=== PATIENT | female | born 2000 | race Caucasian/White ===

== ENCOUNTER 2021-11-10 12:26 | Emergency (ER) | payer OTHER ==
[2021-11-10] MEDS ORDERED: Lidocaine 1% PF 2 ML SDV INJECT ONE (12:52)
[2021-11-10] MEDS ORDERED: Diphtheria,Pertussis(Acell),Tetanus Vaccine 0.5 ML Syringe IM ONE (12:52)
[2021-11-10] MEDS ORDERED: Bacitracin Oint 1 GM U/D Packet TOP ONE (12:52)
== END 2021-11-10 13:14 | disposition home or self-care (01) ==
LOC: MW.ED 12:26
DX: S61.012A Laceration without foreign body of left thumb without damage to nail, initial encounter (principal); Z23 Encounter for immunization; W26.8XXA Contact with other sharp object(s), not elsewhere classified, initial encounter
CPT/HCPCS: 12001; 90471; 90715; 99282-25

== ENCOUNTER 2025-02-14 10:05 | Emergency (ER) | payer SELFPAY | END 2025-02-14 10:30 | disposition home or self-care (01) | LOC: MW.ED 10:05 | DX: Z76.0 Encounter for issue of repeat prescription (principal); F17.200 Nicotine dependence, unspecified, uncomplicated; Z79.899 Other long term (current) drug therapy; Z75.3 Unavailability and inaccessibility of health-care facilities | CPT/HCPCS: 99281; 99282 ==